=== PATIENT | male | born 1980 | race Caucasian/White ===

== ENCOUNTER 2022-09-14 10:54 | Emergency (ER) | payer BC, SELFPAY ==
[2022-09-14 11:10] VITALS: BP 158/89; PULSE 80; RESP 15; TEMP 37.1; O2SAT 100
--- NOTE | 2022-09-14 12:43 | ED.GENADULT ---
HPI - General Adult General Chief complaint: Skin/Abscess/Foreign Body Stated complaint: R BUTT CYST Time Seen by Provider: 09/14/22 11:14 Source: patient Mode of arrival: ambulatory Limitations: no limitations History of Present Illness HPI narrative: This is a 42-year-old male with no pertinent PMH who presents to the ED with chief complaint of abscess to the buttocks. Patient states this has been a recurring problem for the past year. States it has been worse in the past few days. Reports 7 out of 10 pain whenever sitting on the affected side. He reports it is on the right side. He does not feel that it is near the rectum. Denies any problems with bowel movements. Denies fevers, chills, vomiting. Related Data Allergies Allergy/AdvReac Type Severity Reaction Status Date / Time No Known Allergies Allergy Verified 09/03/22 07:50 Review of Systems Review of Systems: CONSTITUTIONAL: Denies fever, chills, or sweats. EYES: Denies visual changes, redness, or discharge. ENT: Denies rhinorrhea, congestion, sore throat, or otalgia. CARDIOVASCULAR: Denies chest pain, palpitations, or edema. RESPIRATORY: Denies cough or dyspnea. GASTROINTESTINAL: Denies abdominal pain, nausea, vomiting, or diarrhea. GENITOURINARY: Denies dysuria or hematuria. SKIN: See HPI MUSCULOSKELETAL: Denies back pain, joint pain, or myalgia. NEUROLOGIC: Denies headache, numbness, dizziness, or weakness. PSYCHIATRIC: Denies anxiety or depression. FOR[facility]LY [facility] Past Medical History Medical History Anxiety BMI 25.0-25.9,adult Contact dermatitis Depression Sleep apnea Tobacco abuse Family History Family History Mother Lung cancer Father No problems noted. Social History Social History Smoking status: Current every day smoker (He started smoking again with stress) Tobacco type: cigarettes Second hand tobacco smoke exposure: No Alcohol intake: current Substance use type: marijuana Lack of Transportation: No Lack of Food: Never True Current Housing: I Have Housing Concerned About Future Housing: No Difficulty Paying Gas/Electric Bills: No Difficulty Paying for Meds: No Currently Unemployed: YES Education: Bachelor's Degree Difficulty w/ Childcare or Family Care: No Living arrangements: with family Occupation/Education: occupation Gender identity (if verbalized by the patient): Male Sexual Orientation (if Verbalized by the Patient): Straight or Heterosexual Spiritual care concerns: No Agree to blood products: Yes Exam Narrative: GENERAL: Well-appearing, well-nourished, and in no acute distress. HEAD: Normocephalic, atraumatic. EYES: PERRLA and EOMI. ENT: Nares clear, no rhinorrhea or epistaxis. Mucous membranes moist. Oropharynx without tonsillar hypertrophy exudate or other lesions. NECK: Supple. No adenopathy or masses. CHEST: No respiratory distress. Clear to auscultation. No wheezes rales or rhonchi HEART: Regular rate and rhythm. No murmur heard. Normal peripheral pulses. ABDOMEN: Soft, nontender, nondistended, normal active bowel sounds. MSK: Normal range of motion. No edema. SKIN: Warm, dry, no rash. NEURO: Alert and oriented x3. No focal deficits. PSYCH: Normal mood and affect. Rectal exam done with nurse clarity developer present: No lesions to the rectum. There is a lesion that is draining purulent fluid to the right external buttocks. It is not near the anus or perirectal area. Course Vital Signs Vital signs: Vital Signs Temperature 98.8 F 09/14/22 11:10 Pulse Rate 80 09/14/22 11:10 Respiratory Rate 15 09/14/22 11:10 Blood Pressure 158/89 H 09/14/22 11:10 Pulse Oximetry 100 09/14/22 11:10 Oxygen Delivery Room Air 09/14/22 11:10 Temperature 98.8 F 09/14/22 11:10 Pu
== END 2022-09-14 14:15 | disposition home or self-care (01) ==
PROVIDERS: Emergency Provider Physician Assistant; PCP Family Medicine
DX: L02.31 Cutaneous abscess of buttock (principal); G47.30 Sleep apnea, unspecified; F17.210 Nicotine dependence, cigarettes, uncomplicated
CPT/HCPCS: 10061; 99283

== ENCOUNTER 2022-09-29 00:25 | Day surgery (SDC) | payer BC, SELFPAY ==
[2022-09-28 11:38] VITALS: BMI 25.8
--- NOTE | 2022-09-28 11:48 | PC.NURSE ---
Report to the Outpatient Waiting Room, entrance under the green pavilion located off [facility], at time ___0600____ on date __09/29/22 . Planned Procedure Time: ____729____. Time changes happen often and if your time is changed the preop area will call you the afternoon before. - You and your visitor will be asked to self-screen and do not enter if you have any COVID symptoms. - A mask is optional within the hospital at this time. Patients may have clear liquids (water, carbonated beverages, clear teas, apple juice) until 3 hours prior to surgery (0430 AM) with a maximum of 20 ounces. - No food from midnight until time of surgery - Infants may have breast milk until 4 hours before surgery, formula 6 hours prior to surgery. - Children will be allowed to drink immediately following surgery. If applicable, please bring a bottle or sippy cup to assist with drinking. Juice, water, soda, and popsicles are readily available. For infants on formula, please bring formula the day of surgery. Pacifiers are allowed. Take the following medications with a SIP of water the morning of surgery: NONE DO NOT STOP ANY OF YOUR OTHER PRESCRIPTION MEDICATIONS PRIOR TO SURGERY ?EXCEPT THE FOLLOWING Medications to discontinue per physician NONE Date to take last dose Please no make-up, nail tajik, hairspray, perfume, deodorant, or body powder the day of surgery. No jewelry (including any body piercings) or valuables the day of surgery, leave them at home. Please take a shower or bath the night before, or the morning of, surgery with an antibacterial soap. Wear comfortable, loose fitting clothing. Children are encouraged to wear pajamas. - Jewelry must be removed prior to entering the operating room. Rings and piercings that are not removed may be cut off. - The hospital will not accept responsibility for valuables. - Please leave all valuables, including medications, at home the day of surgery. If you are going home after surgery, a licensed driver/refuse collector must drive you home. - NO public transportation without another adult if you receive anesthesia. - We recommend that an adult stay with you for 24 hours following discharge. - We also recommend that you do not drive, make important decision, drink alcoholic beverages, or take any drugs that were not prescribed by your health care provider for at least 24 hours after your discharge time. For Pediatric surgeries, we recommend two adults accompany the child home. Follow any additional instructions given to you from your surgeon. If you or anyone in your household have experienced Covid symptoms in the past week, please notify your surgeon or the nurse liaison at the phone number below for possible testing. Telephone instructions given to ___PATIENT and asked if any additional questions and then verbalized understanding. Patient advised to call surgeon office or pre surgery nurse liaison [phone] if any additional questions.
--- NOTE | 2022-09-29 12:45 | OP_ITS ---
PREOPERATIVE DIAGNOSIS Right medial buttock perianal cyst. POSTOPERATIVE DIAGNOSIS Right medial buttock perianal cyst. OPERATION PROCEDURE Excision of right medial buttock perianal inclusion cyst with 4 cm intermediate layer wound closure. SPECTROGRAPH OPERATOR TERRANCE Perkins SERVICE General Surgery. ANESTHESIA General, LMA. INDICATIONS The patient is a 42-year-old gentleman, who presented with a history of having recurrent areas of swelling and infection in the medial right buttock and the perianal region. ?On examination, he appeared to have an inclusion cyst area, which had been intermittently infected and spontaneously drained. ?He presents now for excision of the inclusion cyst. DESCRIPTION OF PROCEDURE After informed consent was obtained, the patient was brought into the operating room. ?He was placed in the right lateral decubitus position on the operating table. ?Anesthesia then administered general LMA anesthesia. ?The area of the right medial buttock, the perianal region was then prepped and draped in the usual sterile fashion. ?I then made an elliptical radial incision with a scalpel and dissected down to the dermis at the skin with a scalpel. ?The whole cyst wall was incorporated within the initial elliptical incision. ?I continued my dissection down through the subcutaneous tissue with electrocautery and completely excised off the cyst within the subcutaneous tissues attached to the overlying ellipse of skin. ?I measured the specimen and it was 1.5 cm in length x 1 cm in width x 0.5 cm in depth and it was sent for pathology for examination. ?Hemostasis on the wound was then achieved with electrocautery. ?The wound was then closed in multiple layers with interrupted 3-0 Vicryl sutures in the subcutaneous tissues. ?The skin edges were approximated utilizing interrupted 3- 0 Vicryl sutures placed in a vertical mattress fashion. ?The length of the intermediate wound closure was 4 cm. ?The area was then cleaned with an antibiotic ointment and a sterile dressing was applied. The patient tolerated the procedure well. ?There were no apparent complications. ?All sponge, needle, and instrument counts were correct at the end of the procedure. ?Estimated for the procedure was 5 mL. ?The patient was awakened and taken to Recovery in stable and satisfactory condition. [facility]
--- NOTE | 2022-09-30 12:38 | SUR.PREOP ---
Paper documentation exists on this patient due to [facility] downtime on 09/29/22
--- NOTE | 2022-09-30 12:39 | SUR.PREOP ---
Paper documentation exists on this patient due to [facility] downtime on 09/29/22
== END 2022-09-29 10:13 ==
PROVIDERS: PCP Family Medicine; Visit Provider Surgery
PROC: (CPT 11402; principal; 2022-09-29 07:30)
DX: L72.11 Pilar cyst (principal)
CPT/HCPCS: 11402; 12032; 88305; A9270; J2250; J3010

== ENCOUNTER 2023-02-15 00:53 | Day surgery (SDC) | payer BC, SELFPAY ==
[2023-02-04 13:54] VITALS: BMI 27.1
[2023-02-15 12:02] VITALS: BP 148/107; PULSE 93; RESP 18; TEMP 36.6; O2SAT 100
[2023-02-15] MEDS: LACTATED RINGERS 1,000 ML 150 ML IV CONT (12:11)
--- NOTE | 2023-02-15 12:52 | WPDANESEPPF ---
Anes - Initial Pre Proc Eval Procedure: Operation Date: 02/15/23 13:00 Proposed Procedures p Colonoscopy - Sal Darling MD Date/Time: 02/15/23 12:52 Surgeon: Sal Darling MD Pre Op Diagnosis: Other Fecal Abnormalities Patient Data Age: 42 Gender: M Height: 1.83 m Weight: 92.2 kg Last Vital Signs Temp 97.8 F 02/15/23 12:02 Pulse 93 02/15/23 12:02 Resp 18 02/15/23 12:02 BP 148/107 H 02/15/23 12:02 Pulse Ox 100 02/15/23 12:02 O2 Del Method Room Air 02/15/23 12:02 Allergies Allergy/AdvReac Type Severity Reaction Status Date / Time No Known Allergies Allergy Verified 02/15/23 12:01 Home Medications Medication Instructions Recorded Confirmed Type No Home Medications 10/13/22 02/04/23 History Patient hx anesthesia problems: none Family hx anesthesia problems: none Results Review: All pre-operative results and documents have been reviewed as part of the pre-operative evaluation. [facility] Past Medical History Medical History Anxiety BMI 25.0-25.9,adult Contact dermatitis Depression Sleep apnea Tobacco abuse Surgical History Surgical History H/O excision of mass 09/29/22 Excision of right medial buttock perianal inclusion cyst with 4 cm intermediate layer wound closure. H/O hemorrhoidectomy [place] teeth extracted Family History Family History Mother Lung cancer Father No problems noted. Social History Social History Smoking packs per day: 0.5 Smoking cigarettes per day: 10.0 Years smoked: 7 Smoking pack-years: 3.50 Smoking status: Former smoker Tobacco type: cigarettes Second hand tobacco smoke exposure: No Additional smoking assessment comments: STATES SMOKED OFF/NON SINCE COLLEGE - CONSISTENT FOR PAST 7 YRS Alcohol intake: current Alcohol use details: SOCIAL - ON VACAIONS Substance use: current Substance use type: marijuana Other substance usage details: PTSD, ANXIETY AND DEPRESSION Lack of Transportation: No Lack of Food: Never True Current Housing: I Have Housing Concerned About Future Housing: No Difficulty Paying Gas/Electric Bills: No Difficulty Paying for Meds: No Currently Unemployed: YES Education: Bachelor's Degree Difficulty w/ Childcare or Family Care: No Living arrangements: with family Additional living arrangements comments: LIVES WITH SIGNIFICANT OTHER - KENNETH LEE Occupation/Education: occupation 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 Gender identity (if verbalized by the patient): Male Sexual Orientation (if Verbalized by the Patient): Straight or Heterosexual Spiritual care concerns: No Agree to blood products: Yes Anes - Eval Final PreProcedure Day of Procedure 02/15/23 12:52 Patient weight: normal Heart: regular rate and rhythm Lungs: clear to auscultation Airway: Mallampati scale class II Neurological: alert and oriented Last oral intake: >/= 8 hours ASA classification: II Emergent: no Anesthetic plan: proceed Anesthesia type and monitoring: general GIVS and standard monitoring Results Review: All pre-operative results and documents have been reviewed as part of the pre-operative evaluation. Informed Consent: The patient's anesthetic plan and its attendant risks and benefits were discussed with the patient/family/POA. Questions were solicited and answers provided to the satisfaction of the patient/family/POA.
--- NOTE | 2023-02-15 12:54 | SUR.PREOP ---
1240: DR WILEY NOTIFIED OF PT'S BLOOD PRESSURE 148/107, NO NEW ORDERS, DR WILEY TO SEE PT.
--- NOTE | 2023-02-15 13:20 | PM.HPGS ---
History of Present Illness History of Present Illness Consent: Risks, benefits, and alternatives have been discussed and questions answered. Patient agrees to proceed with procedure. Chief complaint: Other Fecal Abnormalities Narrative: Jun Alas is a 42 year old male here for first colonoscopy, had intermittent blood in stools- h/o hemorrhoids Review of Systems Constitutional: Constitutional: Denies headache(s) and Denies weakness Eyes: Eyes: Denies blurry vision ENT: Reports Normal hearing present, Denies headache(s) and Denies neck pain Cardiovascular: Cardiovascular: Denies chest pain and Denies dyspnea Respiratory: Respiratory: Denies dyspnea Gastrointestinal: Gastrointestinal: Reports no additional gastrointestinal complaints Genitourinary: Genitourinary: Denies dysuria Musculoskeletal: Musculoskeletal: Denies neck pain Integumentary/Breasts: Skin/Breast: Denies dry skin Neurologic: Reports Normal hearing present, Denies headache(s) and Denies weakness Psychiatric: Psychiatric: Denies anxiety Endocrine: Endocrine: Denies change in body appearance Hematologic/Lymphatic: Hematologic/Lymphatic: Denies easy bleeding Allergic/Immunologic: Allergic/Immunologic: Denies urticaria PMFSH Past Medical History Medical History Anxiety BMI 25.0-25.9,adult Contact dermatitis Depression Sleep apnea Tobacco abuse Surgical History Surgical History H/O excision of mass 09/29/22 Excision of right medial buttock perianal inclusion cyst with 4 cm intermediate layer wound closure. H/O hemorrhoidectomy [place] teeth extracted Family History Family History Mother Lung cancer Father No problems noted. Social History Social History Smoking packs per day: 0.5 Smoking cigarettes per day: 10.0 Years smoked: 7 Smoking pack-years: 3.50 Smoking status: Former smoker Tobacco type: cigarettes Second hand tobacco smoke exposure: No Additional smoking assessment comments: STATES SMOKED OFF/NON SINCE COLLEGE - CONSISTENT FOR PAST 7 YRS Alcohol intake: current Alcohol use details: SOCIAL - ON VACAIONS Substance use: current Substance use type: marijuana Other substance usage details: PTSD, ANXIETY AND DEPRESSION Lack of Transportation: No Lack of Food: Never True Current Housing: I Have Housing Concerned About Future Housing: No Difficulty Paying Gas/Electric Bills: No Difficulty Paying for Meds: No Currently Unemployed: YES Education: Bachelor's Degree Difficulty w/ Childcare or Family Care: No Living arrangements: with family Additional living arrangements comments: LIVES WITH SIGNIFICANT OTHER - KENNETH LEE Occupation/Education: occupation 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 Gender identity (if verbalized by the patient): Male Sexual Orientation (if Verbalized by the Patient): Straight or Heterosexual Spiritual care concerns: No Agree to blood products: Yes Meds Home Medications and Allergies Home Medications Medication Instructions Recorded Confirmed Type No Home Medications 10/13/22 02/04/23 History Allergies Allergy/AdvReac Type Severity Reaction Status Date / Time No Known Allergies Allergy Verified 02/15/23 12:01 Vital Signs Vital Signs - 24 hr 02/15/23 12:02 Temperature 97.8 F Pulse Rate 93 Respiratory Rate 18 Blood Pressure 148/107 H Pulse Oximetry 100 Oxygen Delivery Room Air Exam Const: General: comfortable and no acute distress HENMT: Face/Nose/Sinus: Normal nares present Eyes: General: appearance normal, both eyes and all related structures Neck: Neck: no JVD Resp: Auscultation: clear to auscultation bilaterally Cardio:
[2023-02-15 13:49] VITALS: BP 119/86; PULSE 110; RESP 20; O2SAT 99
[2023-02-15 13:59] VITALS: BP 142/105; PULSE 90; RESP 20; O2SAT 99
[2023-02-15 14:09] VITALS: BP 149/111; PULSE 78; RESP 21; O2SAT 100
== END 2023-02-15 14:20 | disposition home or self-care (01) ==
PROVIDERS: PCP Family Medicine; Visit Provider Internal Medicine Gastroenterology
PROC: 0DJD8ZZ Inspection of Lower Intestinal Tract, Via Natural or Artificial Opening Endoscopic (ICD-10-PCS; CPT 45378; principal; 2023-02-15 13:00)
DX: R19.5 Other fecal abnormalities (principal); F41.9 Anxiety disorder, unspecified; F32.A Depression, unspecified; G47.30 Sleep apnea, unspecified; Z87.738 Personal history of other specified (corrected) congenital malformations of digestive system; Z80.1 Family history of malignant neoplasm of trachea, bronchus and lung; Z87.891 Personal history of nicotine dependence; F12.90 Cannabis use, unspecified, uncomplicated; K63.5 Polyp of colon; K64.8 Other hemorrhoids
CPT/HCPCS: 45385; 88305; J2704; J7120

== ENCOUNTER → 2023-03-18 09:05 | Outpatient (CLI) | payer BC, SELFPAY ==
--- NOTE | ~2023-03-18 | XR_ITS ---
EXAMINATION: XR chest 2V 03/18/2023 09:23 INDICATION: Hemoptysis PROCEDURE: 2 view chest COMPARISON: Comparison to multiple prior studies sequentially, with oldest reviewed study dated 11/2015. FINDINGS: The lungs are clear. The cardiomediastinal silhouette is within normal limits. There are no pleural effusions. There is no pneumothorax suspected. IMPRESSION: 1: NO ACUTE CARDIOPULMONARY DISEASE. Reviewed, dictated and finalized at location B. LE SCHOOL TECHNOLOGY TEACHER
== END ==
PROVIDERS: PCP Family Medicine; Visit Provider Nurse Practitioner Family
DX: R04.2 Hemoptysis (principal)
CPT/HCPCS: 71046

== ENCOUNTER 2023-04-01 14:32 | Outpatient (CLI) | payer BC, SELFPAY ==
--- NOTE | ~2023-04-01 | CT_ITS ---
EXAMINATION: CT abdomen pelvis w con DATE: 04/01/2023 14:55 INDICATION: Unspecified abdominal pain. TECHNIQUE: Computed tomography (CT) of the abdomen and pelvis was performed with 100 mL Omnipaque 350 intravenous contrast. Automated exposure control and iterative reconstruction technique were employe d. The dose-length product was 878.15 mGy-cm. COMPARISON: CT abdomen and pelvis 05/26/2015 FINDINGS: The visualized portions of lung bases demonstrate mild atelectasis. No pleural effusion. Th e heart size is normal. No pericardial effusion. The liver, gallbladder, spleen, pancreas, and adrena l glands are normal. There are cysts in the kidneys measuring up to 10 mm. There is an umbilical zack ia containing fat. There are no dilated loops of bowel. The appendix is normal. There are no patholog ically enlarged lymph nodes. There is no free intraperitoneal fluid. There is mild thoracic and lumba r spondylosis. IMPRESSION: 1. Umbilical hernia containing fat. Reviewed, dictated and finalized at location A. WASHER
== END 2023-04-01 14:33 | disposition home or self-care (01) ==
PROVIDERS: PCP Family Medicine; Visit Provider Nurse Practitioner Family
DX: K42.9 Umbilical hernia without obstruction or gangrene (principal)
CPT/HCPCS: 74177; Q9967

== ENCOUNTER 2023-04-20 08:04 | Outpatient (CLI) | payer BC, SELFPAY ==
--- NOTE | 2023-04-20 08:08 | ECG_ITS ---
Measurements Intervals [place] Rate: 49 P: 59 SD: 172 QRS: 15 QRSD: 97 T: 37 QT: 396 QTc: 361 Interpretive Statements SINUS BRADYCARDIA MINIMAL Q WAVES- ANTEROLAT/HIGH LAT LEADS ABNORMAL ECG NO PREVIOUS ECG AVAILABLE FOR COMPARISON Electronically Signed On 04-20-2023 8:38:48 TRANSFER CAR OPERATOR by Ricardo Schaeffer D.O.
== END 2023-04-20 08:05 | disposition home or self-care (01) ==
LOC: ANHSURGERY 08:07
PROVIDERS: PCP Family Medicine; Visit Provider Surgery
DX: Z01.818 Encounter for other preprocedural examination (principal); K42.0 Umbilical hernia with obstruction, without gangrene; I10 Essential (primary) hypertension; R94.31 Abnormal electrocardiogram [ECG] [EKG]; R93.1 Abnormal findings on diagnostic imaging of heart and coronary circulation
CPT/HCPCS: 36415; 86850; 86900; 86901; 93005

== ENCOUNTER 2023-04-26 08:03 | Outpatient (CLI) | payer BC, SELFPAY | END 2023-04-26 08:04 | disposition home or self-care (01) | LOC: ANHAUDIO 08:03 | PROVIDERS: PCP Family Medicine; Visit Provider Nurse Practitioner Family | DX: H91.90 Unspecified hearing loss, unspecified ear (principal) | CPT/HCPCS: 92557; 92567 ==

== ENCOUNTER 2023-04-28 00:57 | Day surgery (SDC) | payer BC, SELFPAY ==
[2023-04-13 14:54] VITALS: BMI 28.5
--- NOTE | 2023-04-13 14:59 | PC.NURSE ---
Report to the Outpatient Waiting Room, entrance under the green pavilion located off [facility], at time 12:00 on date 04/28/23. Planned Procedure Time: 2:00. Time changes happen often and if your time is changed the preop area will call you the afternoon before. - You and your visitor will be asked to self-screen and do not enter if you have any COVID symptoms. - A mask is optional within the hospital at this time. Patients may have clear liquids (water, carbonated beverages, clear teas, apple juice) until 3 hours prior to surgery (11:00) with a maximum of 20 ounces. - No food from midnight until time of surgery Take the following medications with a SIP of water the morning of surgery: NONE DO NOT STOP ANY OF YOUR OTHER PRESCRIPTION MEDICATIONS PRIOR TO SURGERY ?EXCEPT THE FOLLOWING Medications to discontinue per physician: N/A Date to take last dose: N/A Please no make-up, nail anguillan, hairspray, perfume, deodorant, or body powder the day of surgery. No jewelry (including any body piercings) or valuables the day of surgery, leave them at home. Please take a shower or bath the night before, or the morning of, surgery with an antibacterial soap. Wear comfortable, loose fitting clothing. - Jewelry must be removed prior to entering the operating room. Rings and piercings that are not removed may be cut off. - The hospital will not accept responsibility for valuables. - Please leave all valuables, including medications, at home the day of surgery. If you are going home after surgery, a licensed transit mixer driver must drive you home. - NO public transportation without another adult if you receive anesthesia. - We recommend that an adult stay with you for 24 hours following discharge. - We also recommend that you do not drive, make important decision, drink alcoholic beverages, or take any drugs that were not prescribed by your health care provider for at least 24 hours after your discharge time. Follow any additional instructions given to you from your surgeon. If you or anyone in your household have experienced Covid symptoms in the past week, please notify your surgeon or the nurse liaison at the phone number below for possible testing. Telephone instructions given to PT - GISELLE AZEVEDO and asked if any additional questions and then verbalized understanding. Patient advised to call surgeon office or pre surgery nurse liaison [phone] if any additional questions.
[2023-04-28] VITALS (9 sets, daily range): BP systolic 113–137; BP diastolic 71–88; PULSE 57–80; RESP 12–18; TEMP 36.2–36.6; O2SAT 95–100
[2023-04-28] MEDS: ACETAMINOPHEN 500 MG TABLET 1000 MG PO (11:00)
[2023-04-28] MEDS: KETOROLAC 15 MG/ML VIAL (*BKC) IV PUSH (11:00)
--- NOTE | 2023-04-28 11:49 | WPDANESEPPF ---
Anes - Initial Pre Proc Eval Procedure: Operation Date: 04/28/23 12:00 Proposed Procedures p Robotic Assisted Incarcerated Umbilical Hernia with Mesh - Zenaida Olea MD Date/Time: 04/28/23 11:49 Surgeon: Zenaida Olea MD Pre Op Diagnosis: Incarcerated 3 cm Umb Hernia Patient Data Age: 42 Gender: M Height: 1.83 m Weight: 96 kg Last Vital Signs Temp 36.6 C 04/28/23 11:00 Pulse 57 L 04/28/23 11:00 Resp 14 04/28/23 11:00 BP 116/77 04/28/23 11:00 Pulse Ox 100 04/28/23 11:00 O2 Del Method Room Air 04/28/23 11:00 Allergies Allergy/AdvReac Type Severity Reaction Status Date / Time No Known Allergies Allergy Verified 04/28/23 11:16 Home Medications Medication Instructions Recorded Confirmed Type lisinopril 10 mg tablet 10 mg PO DAILY #90 tabs 04/07/23 04/13/23 Rx Patient hx anesthesia problems: none Family hx anesthesia problems: none Results Review: All pre-operative results and documents have been reviewed as part of the pre-operative evaluation. [facility] Past Medical History Medical History Anxiety BMI 25.0-25.9,adult Contact dermatitis Depression Overweight with body mass index (BMI) of 28 to 28.9 in adult Sleep apnea Tobacco abuse Surgical History Surgical History H/O excision of mass 09/29/22 Excision of right medial buttock perianal inclusion cyst with 4 cm intermediate layer wound closure. H/O hemorrhoidectomy [place] teeth extracted Family History Family History Mother Lung cancer Father No problems noted. Social History Social History Smoking packs per day: 0.5 Smoking cigarettes per day: 10.0 Years smoked: 7 Smoking pack-years: 3.50 Smoking status: Never smoker Tobacco type: cigarettes Second hand tobacco smoke exposure: No Smoking end date: 09/16/22 Additional smoking assessment comments: STATES SMOKED OFF/NON SINCE COLLEGE - CONSISTENT FOR PAST 7 YRS Alcohol intake: current Alcohol use details: NOT IN A FEW YEARS Substance use: current Substance use type: marijuana Other substance usage details: PTSD, ANXIETY AND DEPRESSION Lack of Transportation: No Lack of Food: Never True Current Housing: I Have Housing Concerned About Future Housing: No Difficulty Paying Gas/Electric Bills: No Difficulty Paying for Meds: No Currently Unemployed: YES Education: Bachelor's Degree Difficulty w/ Childcare or Family Care: No Living arrangements: with family Additional living arrangements comments: LIVES WITH SIGNIFICANT OTHER - KENNETHPAOLA LEE Occupation/Education: occupation 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 Gender identity (if verbalized by the patient): Male Sexual Orientation (if Verbalized by the Patient): Straight or Heterosexual Spiritual care concerns: No Agree to blood products: Yes Anes - Eval Final PreProcedure Day of Procedure 04/28/23 11:49 Patient weight: overweight Heart: regular rate and rhythm Lungs: decreased breath sounds Airway: Mallampati scale class II Neurological: alert and oriented Last oral intake: >/= 8 hours ASA classification: III Emergent: no Anesthetic plan: proceed Anesthesia type and monitoring: general ETT and standard monitoring Results Review: All pre-operative results and documents have been reviewed as part of the pre-operative evaluation. Informed Consent: The patient's anesthetic plan and its attendant risks and benefits were discussed with the patient/family/POA. Questions were solicited and answers provided to the satisfaction of the patient/family/POA.
[2023-04-28] MEDS: LACTATED RINGERS 1,000 ML 30 ML IV CONT ×2 (12:00→14:11)
--- NOTE | 2023-04-28 12:21 | WPDHPUPDATE1 ---
History and Physical Update Update Date/Time: 04/28/23 12:21 History and Physical has been reviewed, including an updated exam of the patient. There are NO changes in the patient's condition. Risks, benefits, and alternatives have been discussed and questions answered. Patient agrees to proceed with procedure.
[2023-04-28] MEDS: ceFAZolin 2 GM/D5W 50 ML 2 GM/50 ML BAG IVPB (12:24)
[2023-04-28] MEDS: BUPIVACAINE/EPINEPHRINE 0.5% 50 ML VIAL 30 ML INFILTRATE (12:57)
--- NOTE | 2023-04-28 14:07 | W.PM.PROC2 ---
Procedure Note - Detailed Date of Procedure 04/28/23 Pre-op Diagnosis Incarcerated 3 cm Umb Hernia Post-op Diagnosis Same Procedure Performed Robotic assisted repair incarcerated umbilical hernia with defect measuring 3 cm Surgeon Zenadia Olea MD Anesthesia General Indications 42 y/o M presenting c moderate sized symptomatic umbilical hernia Findings 3 cm umbilical hernia with incarcerated preperitoneal fat Description of Procedure The patient was taken the operating room placed in the supine position. After adequate induction of general anesthesia, the patient was prepped and draped in normal sterile fashion. A time-out was then done to verify the patient's identity as well as the procedure being performed. I began by making a 8 mm incision in the left upper quadrant. Through this, a Veress needle was placed into the peritoneal cavity and CO2 gas was insufflated. After adequate pneumoperitoneum was achieved, a 12 mm trocar was placed through this incision. I then placed the laparoscope through this trocar site and under direct visualization I placed a 8 mm port in the left mid abdomen as well as an additional 8 mm port in the left lower abdomen. The robot was then docked to the 3 port sites. I then went to the robotic console. I began by identifying the hernia. A moderate-sized incarcerated umbilical hernia was noted. I created a preperitoneal flap approximately 6 cm lateral to the hernia. This flap was carried widely superior and inferior to the defect. I then was able to reduce this hernia. The hernia was noted to contain a large amount of preperitoneal fat. I then carried the flap distally past the hernia. I then closed the approximately 3 cm defect with 0 strata fix suture. I then placed a 15 x 10 cm Bard soft mesh into the abdominal cavity. The positional stitch was placed in the middle of the mesh and brought up centering the mesh over the defect. Once this was done, I used 2 O vicryl suture to suture the mesh to the abdominal wall. Once the mesh was sutured in, I was happy with our tension-free repair. The mesh was noted to have good overlap of the defect. I then closed the flap with 2 0 V lock. I then removed the 12 mm port and closed this under direct visualization with a 0 Vicryl suture and Jaswinder cone. At this point, the robot was undocked and all ports were removed. All port sites were then closed with 4 O Monocryl subcuticular suture. The patient tolerated the procedure well, is extubated in the operating room postoperative, and will be transferred to the recovery room in stable condition. Implants 15 x 10 cm Bard soft mesh Estimated Blood Loss 5 Drains No Packing No Pathology None sent Complications No immediate complications Condition Stable Disposition PACU [facility] Billing Surgery - Charge Forward: Surgery Billing
[2023-04-28] MEDS: fentaNYL CITRATE INJ (*CRX) 100 MCG/2 ML VIAL 25 MCG IV PUSH ×8 (14:20→14:43)
[2023-04-28] MEDS: HYDROmorphone HCL INJ (*CRX) 1 MG/ML SYR IV PUSH ×2 (14:45→15:00)
[2023-04-28] MEDS: ONDANSETRON INJ 4 MG/2 ML VIAL IV PUSH (14:48)
[2023-04-28] MEDS: oxyCODONE HCL (*CRX) 5 MG TAB IR PO (15:44)
== END 2023-04-28 16:15 | disposition home or self-care (01) ==
PROVIDERS: PCP Family Medicine; Visit Provider Surgery
PROC: (CPT 49594; principal; 2023-04-28 12:00)
DX: K42.0 Umbilical hernia with obstruction, without gangrene (principal); F41.9 Anxiety disorder, unspecified; F32.A Depression, unspecified; G47.30 Sleep apnea, unspecified; Z87.891 Personal history of nicotine dependence; Z80.1 Family history of malignant neoplasm of trachea, bronchus and lung
CPT/HCPCS: 49594; S2900; A9270; C1781; J0690; J1100; J1170; J1596; J1885; J2250; J2405; J2704; J2710; J3010; J7030; J7120

== ENCOUNTER 2023-10-04 12:57 | Outpatient (CLI) | payer BC, SELFPAY | END 2023-10-04 12:58 | disposition home or self-care (01) | LOC: ANHSURGERY 13:01 | PROVIDERS: PCP Family Medicine; Visit Provider Surgery | DX: Z01.818 Encounter for other preprocedural examination (principal); K40.90 Unilateral inguinal hernia, without obstruction or gangrene, not specified as recurrent | CPT/HCPCS: 36415; 86850; 86900; 86901 ==

== ENCOUNTER 2023-11-07 00:39 | Day surgery (SDC) | payer BC, SELFPAY ==
[2023-10-04 11:03] VITALS: BMI 29.9
--- NOTE | 2023-10-04 11:04 | PC.NURSE ---
Report to the Outpatient Waiting Room, entrance under the green pavilion located off [facility], at time _1000_ on date _[id number]_. Planned Procedure Time: _1200_. Time changes happen often and if your time is changed the preop area will call you the afternoon before. - You and your visitor will be asked to self-screen and do not enter if you have any COVID symptoms. - A mask is optional within the hospital at this time. Patients may have clear liquids (water, carbonated beverages, clear teas, apple juice) until 3 hours prior to surgery with a maximum of 20 ounces. - No food from midnight until time of surgery Take the following medications with a SIP of water the morning of surgery: __None DO NOT STOP ANY OF YOUR OTHER PRESCRIPTION MEDICATIONS PRIOR TO SURGERY ?EXCEPT THE FOLLOWING Medications to discontinue per physician None Date to take last dose Please no make-up, nail spanish, hairspray, perfume, deodorant, or body powder the day of surgery. No jewelry (including any body piercings) or valuables the day of surgery, leave them at home. Please take a shower or bath the night before, or the morning of, surgery with an antibacterial soap. Wear comfortable, loose fitting clothing. - Jewelry must be removed prior to entering the operating room. Rings and piercings that are not removed may be cut off. - The hospital will not accept responsibility for valuables. - Please leave all valuables, including medications, at home the day of surgery. If you are going home after surgery, a licensed production truck driver must drive you home. - NO public transportation without another adult if you receive anesthesia. - We recommend that an adult stay with you for 24 hours following discharge. - We also recommend that you do not drive, make important decision, drink alcoholic beverages, or take any drugs that were not prescribed by your health care provider for at least 24 hours after your discharge time. Follow any additional instructions given to you from your surgeon. If you or anyone in your household have experienced Covid symptoms in the past week, please notify your surgeon or the nurse liaison at the phone number below for possible testing. Telephone instructions given to __Aaron___and asked if any additional questions and then verbalized understanding. Patient advised to call surgeon office or pre surgery nurse liaison [phone] if any additional questions.
--- NOTE | 2023-11-03 09:39 | PC.NURSE ---
Report to the Outpatient Waiting Room, entrance under the green pavilion located off [facility], at time _0730_ on date _[id number]_. Planned Procedure Time: _0930_. Time changes happen often and if your time is changed the preop area will call you the afternoon before. - You and your visitor will be asked to self-screen and do not enter if you have any COVID symptoms. - A mask is optional within the hospital at this time. Patients may have clear liquids (water, carbonated beverages, clear teas, apple juice) until 3 hours prior to surgery with a maximum of 20 ounces. - No food from midnight until time of surgery Take the following medications with a SIP of water the morning of surgery: ____None DO NOT STOP ANY OF YOUR OTHER PRESCRIPTION MEDICATIONS PRIOR TO SURGERY ?EXCEPT THE FOLLOWING Medications to discontinue per physician None Date to take last dose Please no make-up, nail palauan, hairspray, perfume, deodorant, or body powder the day of surgery. No jewelry (including any body piercings) or valuables the day of surgery, leave them at home. Please take a shower or bath the night before, or the morning of, surgery with an antibacterial soap. Wear comfortable, loose fitting clothing. - Jewelry must be removed prior to entering the operating room. Rings and piercings that are not removed may be cut off. - The hospital will not accept responsibility for valuables. - Please leave all valuables, including medications, at home the day of surgery. If you are going home after surgery, a licensed team truck driver must drive you home. - NO public transportation without another adult if you receive anesthesia. - We recommend that an adult stay with you for 24 hours following discharge. - We also recommend that you do not drive, make important decision, drink alcoholic beverages, or take any drugs that were not prescribed by your health care provider for at least 24 hours after your discharge time. Follow any additional instructions given to you from your surgeon. If you or anyone in your household have experienced Covid symptoms in the past week, please notify your surgeon or the nurse liaison at the phone number below for possible testing. Telephone instructions given to _Jun_and asked if any additional questions and then verbalized understanding. Patient advised to call surgeon office or pre surgery nurse liaison [phone] if any additional questions.
[2023-11-07] VITALS (11 sets, daily range): BP systolic 121–150; BP diastolic 69–94; PULSE 53–77; RESP 14–18; TEMP 36.2–37; O2SAT 96–100
--- NOTE | 2023-11-07 07:36 | PM.IMHP ---
H&P: HPI History of Present Illness Date/Time: 11/07/23 07:36 Chief Complaint: Left inguinal hernia Narrative: The patient is a 43 old male presenting to office complaining left groin pain. The patient reports the pain progressively worsened over couple months. The patient reports the pain exacerbated physical activity, straining. The patient has a previous umbilical hernia repair and reports this pain is different than the prior hernia pain. Review of Systems Review of Systems: All systems reviewed & are unremarkable except as noted in HPI and below PMFSH Past Medical History Medical History Anxiety Contact dermatitis Depression Overweight with body mass index (BMI) of 28 to 28.9 in adult Sleep apnea Tobacco abuse Surgical History Surgical History H/O excision of mass 09/29/22 Excision of right medial buttock perianal inclusion cyst with 4 cm intermediate layer wound closure. H/O hemorrhoidectomy History of umbilical hernia repair Robotic assisted repair incarcerated umbilical hernia with defect measuring 3 cm 04/28/23 [facility] [place] teeth extracted Family History Family History Mother Lung cancer Father Suicide Social History Social History Smoking packs per day: 1 Smoking cigarettes per day: 20.0 Years smoked: 15 Smoking pack-years: 15.00 Smoking status: Former smoker Tobacco type: cigarettes Second hand tobacco smoke exposure: No Smoking end date: 10/03/22 Additional smoking assessment comments: STATES SMOKED OFF/NON SINCE COLLEGE - CONSISTENT FOR PAST 7 YRS Alcohol intake: current Drinks per week: 6 Alcohol use details: NOT IN A FEW YEARS Substance use: current Substance use type: marijuana Other substance usage details: Medical marijuana Do You Feel Safe in your Home?: Yes Lack of Transportation: No Lack of Food: Never True Current Housing: I Have Housing Concerned About Future Housing: No Difficulty Paying Gas/Electric Bills: No Difficulty Paying for Meds: No Currently Unemployed: YES Education: Bachelor's Degree Difficulty w/ Childcare or Family Care: No Living arrangements: with family Additional living arrangements comments: LIVES WITH SIGNIFICANT OTHER - KENNETHJULIO C LEE Occupation/Education: occupation 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 Gender identity (if verbalized by the patient): Male Sexual Orientation (if Verbalized by the Patient): Straight or Heterosexual Spiritual care concerns: No Agree to blood products: Yes Meds Home Medications and Allergies Home Medications Medication Instructions Recorded Confirmed Type lisinopril 10 mg tablet 10 mg PO DAILY #90 tabs 07/20/23 10/04/23 Rx Allergies Allergy/AdvReac Type Severity Reaction Status Date / Time No Known Allergies Allergy Verified 10/04/23 10:58 Exam Const: General: cooperative, comfortable and no acute distress Resp: Auscultation: clear to auscultation bilaterally Cardio: Rate: regular rate Rhythm: regular rhythm GI: Inspection: normal to inspection and non-distended GI Palp: Yes abdominal tenderness, Yes Soft to palpation, Yes Tenderness to palpation present (GI) and Yes Hernia present Other: Left inguinal hernia moderate-sized, reducible Assessment and Plan Assessment and plan (1) Left inguinal hernia: Code(s): K40.90 - Unilateral inguinal hernia, without obstruction or gangrene, not specified as recurrent Status: Acute Assessment and Plan: was set up for robotic assisted repair with mesh
--- NOTE | 2023-11-07 07:38 | WPDHPUPDATE1 ---
History and Physical Update Update Date/Time: 11/07/23 07:38 History and Physical has been reviewed, including an updated exam of the patient. There are NO changes in the patient's condition. Risks, benefits, and alternatives have been discussed and questions answered. Patient agrees to proceed with procedure.
[2023-11-07] MEDS: ACETAMINOPHEN 500 MG TABLET 1000 MG PO (07:51)
--- NOTE | 2023-11-07 08:27 | WPDANESEPPF ---
Anes - Initial Pre Proc Eval Procedure: Operation Date: 11/07/23 09:30 Proposed Procedures p Robotic Assisted Left Inguinal Hernia Repair with Mesh - Zenaida Olea MD Date/Time: 11/07/23 08:27 Surgeon: Zenaida Olea MD Pre Op Diagnosis: Lt Ing Hernia Patient Data Age: 43 Gender: M Height: 1.83 m Weight: 100 kg Allergies Allergy/AdvReac Type Severity Reaction Status Date / Time No Known Allergies Allergy Verified 11/07/23 07:40 Home Medications Medication Instructions Recorded Confirmed Type lisinopril 10 mg tablet 10 mg PO DAILY #90 tabs 07/20/23 11/07/23 Rx Patient hx anesthesia problems: none Family hx anesthesia problems: none Results Review: All pre-operative results and documents have been reviewed as part of the pre-operative evaluation. [facility] Past Medical History Medical History Anxiety Contact dermatitis Depression Overweight with body mass index (BMI) of 28 to 28.9 in adult Sleep apnea Tobacco abuse Surgical History Surgical History H/O excision of mass 09/29/22 Excision of right medial buttock perianal inclusion cyst with 4 cm intermediate layer wound closure. H/O hemorrhoidectomy History of umbilical hernia repair Robotic assisted repair incarcerated umbilical hernia with defect measuring 3 cm 04/28/23 [facility] [place] teeth extracted Family History Family History Mother Lung cancer Father Suicide Social History Social History Smoking packs per day: 1 Smoking cigarettes per day: 20.0 Years smoked: 15 Smoking pack-years: 15.00 Smoking status: Former smoker Tobacco type: cigarettes Second hand tobacco smoke exposure: No Smoking end date: 10/03/22 Additional smoking assessment comments: STATES SMOKED OFF/NON SINCE COLLEGE - CONSISTENT FOR PAST 7 YRS Alcohol intake: current Drinks per week: 6 Alcohol use details: NOT IN A FEW YEARS Substance use: current Substance use type: marijuana Other substance usage details: Medical marijuana Do You Feel Safe in your Home?: Yes Lack of Transportation: No Lack of Food: Never True Current Housing: I Have Housing Concerned About Future Housing: No Difficulty Paying Gas/Electric Bills: No Difficulty Paying for Meds: No Currently Unemployed: YES Education: Bachelor's Degree Difficulty w/ Childcare or Family Care: No Living arrangements: with family Additional living arrangements comments: LIVES WITH SIGNIFICANT OTHER - KENNETH LEE Occupation/Education: occupation 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 Gender identity (if verbalized by the patient): Male Sexual Orientation (if Verbalized by the Patient): Straight or Heterosexual Spiritual care concerns: No Agree to blood products: Yes Anes - Eval Final PreProcedure Day of Procedure 11/07/23 08:27 Patient weight: overweight Heart: regular rate and rhythm Lungs: clear to auscultation Airway: Mallampati scale class III Neurological: alert and oriented Last oral intake: >/= 8 hours ASA classification: III Emergent: no Anesthetic plan: proceed Anesthesia type and monitoring: general ETT and standard monitoring Results Review: All pre-operative results and documents have been reviewed as part of the pre-operative evaluation. HTN, ex smoker, quit 2022, MARY on CPAP. Informed Consent: The patient's anesthetic plan and its attendant risks and benefits were discussed with the patient/family/POA. Questions were solicited and answers provided to the satisfaction of the patient/family/POA.
[2023-11-07] MEDS: LACTATED RINGERS 1,000 ML 30 ML IV CONT ×3 (08:30→12:26)
[2023-11-07] MEDS: KETOROLAC 15 MG/ML VIAL (*BKC) IV PUSH (09:51)
[2023-11-07] MEDS: ceFAZolin 2 GM/D5W 50 ML 2 GM/50 ML BAG IVPB (10:06)
[2023-11-07] MEDS: BUPIVACAINE/EPINEPHRINE 0.5% 10 ML VIAL 30 ML INFILTRATE (10:42)
--- NOTE | 2023-11-07 11:25 | W.PM.PROC2 ---
Procedure Note - Detailed Date of Procedure 11/07/23 Pre-op Diagnosis Lt Ing Hernia Post-op Diagnosis Same Procedure Performed robotic assisted left inguinal hernia repair with mesh Surgeon Zenaida Olea MD Anesthesia General Indications 43 y/o M c LIH and worsening groin pain over last few mos Findings indirect left inguinal hernia Description of Procedure Patient was brought into the operating room and placed in the supine position. After adequate induction of general anesthesia, the patient was prepped and draped in normal sterile fashion. A time-out was then done to verify the patient's identity, as well as the procedure being performed. I began by making a 8 mm incision in the supraumbilical region, a Veress needle was then placed into the peritoneal cavity. CO2 gas was then insufflated and after adequate pneumoperitoneum was achieved, the Veress needle was removed. I then placed an 8 mm trocar through this incision. I then placed the endoscope through this trocar site and under direct visualization placed 2 further 8 mm ports in the right and left mid abdomen. There was noted to be some adhesions from previous umbilical hernia repair and these were taken down sharply under direct visualization. The [employer] robot was then docked to the 3 trocar sites. I then scrubbed out and went to the robotic console. Upon examining the pelvis, it was noted that the patient had a moderate left inguinal hernia. The right side was examined and no hernia defect was noted. I began by making a preperitoneal flap approximately 6 cm superior to the defect. This flap was carried medially past the umbilical ligaments and laterally to the transversalis. It then began dissection of my medial compartment taking this down to the pubic tubercle. I then began the lateral dissection taking this down to the transversalis fascia. Once these compartments were achieved, I began dissection around the cord structures. A moderate sized indirect hernia was noted at this point. Using careful dissection, was able to reduce indirect hernia sac off the cord structures. Once this was adequately done, I went ahead and placed a large piece of 3D Max mesh into the abdominal cavity. The mesh was carefully positioned, centering the center of the mesh over the indirect defect. Once this was done, was very satisfied with our repair. Using 3-0 Vicryl sutures, I tacked the mesh medially to Gigi's ligament. Two lateral sutures were placed from the mesh to the transversalis fascia. I then closed the peritoneal flap with a running 2.0 V Lock suture. The abdomen was then desufflated, and all ports were removed. All incisions were then closed with the 4.0 monocryl suture. Dermabond was placed on each wound. The patient tolerated the procedure well, was extubated in the operating room postoperatively, and will now be transferred to the recovery room in stable condition. Implants large 3DMax mesh Estimated Blood Loss 10 Drains No Packing No Pathology None sent Complications No immediate complications Condition Stable Disposition PACU [facility] Billing Surgery - Charge Forward: Surgery Billing
[2023-11-07] MEDS: fentaNYL CITRATE INJ (*CRX) 100 MCG/2 ML VIAL 25 MCG IV PUSH ×4 (11:52→12:18)
[2023-11-07] MEDS: oxyCODONE HCL (*CRX) 5 MG TAB IR PO (13:10)
== END 2023-11-07 14:22 | disposition home or self-care (01) ==
PROVIDERS: PCP Family Medicine; Visit Provider Surgery
PROC: 8E0Y4CZ Robotic Assisted Procedure of Lower Extremity, Percutaneous Endoscopic Approach (ICD-10-PCS; CPT 49650; principal; 2023-11-07 09:30)
DX: K40.90 Unilateral inguinal hernia, without obstruction or gangrene, not specified as recurrent (principal); F12.90 Cannabis use, unspecified, uncomplicated; Z72.0 Tobacco use
CPT/HCPCS: 49650; S2900; 36415; 86850; 86900; 86901; A9270; C1781; J0690; J1100; J1596; J1885; J2250; J2405; J2704; J3010; J7120